=== PATIENT | male | born 2000 | race Caucasian/White ===

== ENCOUNTER 2023-01-14 16:26 | Emergency (ER) | payer SELFPAY ==
[~2023-01-14] VITALS: Ht 167.6 cm; Wt 80.0 kg
[2023-01-14 16:40] VITALS: BP 153/93; PULSE 105; RESP 18; TEMP 98.6; O2SAT 98
== END 2023-01-14 17:45 | disposition home or self-care (01) ==
LOC: ER 16:26
DX: L91.0 Hypertrophic scar (principal)
CPT/HCPCS: 99281